=== PATIENT | female | born 1960 | race Caucasian/White ===

== ENCOUNTER 2021-11-23 19:17 | Emergency (ER) | payer OTHER, MEDICAID ==
[~2021-11-23] VITALS: Ht 154.9 cm; Wt 74.8 kg
[2021-11-23 19:49] VITALS: BP_SYST 152
[2021-11-23] MEDS ORDERED: methocarbamoL 500 MG TABLET PO ONE (20:30)
[2021-11-23] MEDS ORDERED: HYDROcodone/ACETAMIN 7.5-325 MG TAB PO ONE (20:30)
[2021-11-23] MEDS ORDERED: MORPHINE SULFATE 15 MG TABLET.ER PO SCH (21:45)
[2021-11-23] MEDS ORDERED: HYDR-3927 PO (22:18)
[2021-11-23] MEDS ORDERED: MORPHINE 2 MG/ML INJ. SYRINGE IM ONE (22:30)
[2021-11-23 23:25] VITALS: BP_SYST 126
== END 2021-11-23 23:00 | disposition home or self-care (01) ==
LOC: SED 19:17
DX: G89.29 Other chronic pain (principal); M25.511 Pain in right shoulder; Z88.8 Allergy status to other drugs, medicaments and biological substances; Z79.899 Other long term (current) drug therapy; W18.39XA Other fall on same level, initial encounter; Y93.89 Activity, other specified; Y92.89 Other specified places as the place of occurrence of the external cause; Y99.8 Other external cause status
CPT/HCPCS: 73030; 96372; 99283; J2270

== ENCOUNTER 2022-02-19 10:08 | Emergency (ER) | payer MEDICARE, MEDICAID ==
[~2022-02-19] VITALS: Ht 154.9 cm; Wt 72.6 kg
[2022-02-19 10:08] VITALS: BP_SYST 131
[~2022-02-19 10:08] MED LIST: HYDR-3927 PO
--- NOTE | 2022-02-19 10:08 | NUR ---
BROUGHT BACK TO BED #5 AND TRIAGED, REPORT GIVEN TO ARIADNE
--- NOTE | 2022-02-19 10:20 | NUR ---
Pt to bed #5 coming from home ambulatory with steady gait. Pt is A&Ox4. Skin intact. Pt c/o having epigastric pain and right neck pain that started a couple weeks ago. Pt rates pain 4/10 non-radiating and comes and goes. No chest pain and no sob. Denies n/v. Pt states she is concerned because her is in the ER as well in the room next to her and wants to be next to him. Stated that pt needs to stay in her room so Dr. Mullins can assess her. Bed in lowest position. VSS.
--- NOTE | 2022-02-19 10:32 | NUR ---
ER at bedside examining patient.
[2022-02-19] MEDS ORDERED: MAG HYDROX/AL HYDROX/SIMETH 30 ML, DICYCLOMINE HCL 20 MG, LIDOCAINE VISCOUS 2% 15ML (PO... PO ONE ×3 (10:45)
--- NOTE | 2022-02-19 10:50 | NUR ---
Urine collected and sent to lab. robotics technologist at bedside.
[2022-02-19 11:02] LABS: BILIRUBIN,URINE NEGATIVE (NEGATIVE); BLOOD, URINE NEGATIVE (NEGATIVE); CLARITY/URINE CLEAR (CLEAR); COLOR,URINE YELLOW (YELLOW); GLUCOSE,URINE NEGATIVE (NEGATIVE); KETONES,URINE TRACE (NEGATIVE); LEUKOCYTE ESTERASE ,URINE 1+ (NEGATIVE); NITRITE, URINE NEGATIVE (NEGATIVE); PROTEIN URINE NEGATIVE (NEGATIVE); UROBILINOGEN,URINE 0.2 (0.2-1.0)
--- NOTE | 2022-02-19 11:09 | NUR ---
EKG performed at BS. Physician given copy of EKG for review.
[2022-02-19 11:30] LABS: BASOPHILS % (AUTO) 0.7 % (0.0-2.0); CALCIUM 8.5 mg/dL (8.4-11.0); CREATININE 0.66 mg/dL (0.55-1.30); EOSINOPHILS % (AUTO) 0.2 % (0.0-4.0); HEMATOCRIT 35.8 % (36-48); HEMOGLOBIN 11.8 g/dL (12.0-16.0); LYMPHOCYTES # (AUTO) 1.3 K/uL (1.0-5.5); LYMPHOCYTES % (AUTO) 21.7 % (20.5-51.5); MEAN CORPUSCULAR HEMOGLOBIN 27 pg (27-31); MEAN CORPUSCULAR HGB CONC 33 % (32-36); MEAN CORPUSCULAR VOLUME 81 fL (79.0-98.0); MONOCYTES # (AUTO) 0.3 K/uL (0.0-1.0); NEUTROPHILS # (AUTO) 4.4 K/uL (1.8-7.7); NEUTROPHILS % (AUTO) 72.4 % (40.0-70.0); PLATELET COUNT (AUTO) 317 K/uL (130-430); POTASSIUM 3.9 mmol/L (3.5-5.1); RED CELL DISTRIBUTION WIDTH 15.5 % (9.0-15.0)
[2022-02-19 11:36] LABS: ALBUMIN 3.5 g/dL (3.4-4.8); TOTAL BILIRUBIN 0.4 mg/dL (0.0-1.0)
[2022-02-19 11:47] LABS: BACTERIA,URINE RARE /HPF (None Seen); RBC,URINE 0-3 /HPF (0-3)
[2022-02-19] MEDS ORDERED: PANT20TA2 PO (13:33)
[2022-02-19 13:38] VITALS: BP_SYST 154
[2022-02-19] MEDS ORDERED: ACETAMINOPHEN 325 MG TABLET ONE (13:43)
[2022-02-19] MEDS ORDERED: ACETAMINOPHEN 325 MG TABLET PO ONE (13:45)
--- NOTE | 2022-02-19 13:47 | NUR ---
Note denia in ED - 02/19/22 at 1349 by [email or web address] Patient given written and verbal discharge instructions and verbalizes understanding. ER discussed with patient the results and treatment provided. Patient in stable condition. ID arm band removed. Rx of Protonix given. Patient educated on pain management and to follow up with PMD. Pain Scale 0/10 . Opportunity for questions provided and answered. Medication side effect fact sheet provided.
--- NOTE | 2022-02-19 13:47 | NUR ---
Patient given written and verbal discharge instructions and verbalizes understanding. ER MD discussed with patient the results and treatment provided. Patient in stable condition. ID arm band removed. Rx of Protonix given. Patient educated on pain management and to follow up with PMD. Pain Scale 2/10. Opportunity for questions provided and answered. Medication side effect fact sheet provided.
== END 2022-02-19 13:38 | disposition home or self-care (01) ==
LOC: SED 10:08
DX: K29.70 Gastritis, unspecified, without bleeding (principal); R10.13 Epigastric pain; Z88.5 Allergy status to narcotic agent; Z88.6 Allergy status to analgesic agent
CPT/HCPCS: 36415; 80053; 81000; 83690; 85025; 87086; 93005; 99284; J2001

== ENCOUNTER 2022-03-13 19:30 | Emergency (ER) | payer MEDICARE, MEDICAID ==
[~2022-03-13] VITALS: Ht 154.9 cm; Wt 73.9 kg
[~2022-03-13 19:30] MED LIST changes: +BACTROBAN NS; -HYDR-3927 PO; +PANT20TA2 PO
[2022-03-13 19:35] VITALS: BP_SYST 157
[2022-03-13 21:13] LABS: BILIRUBIN,URINE NEGATIVE (NEGATIVE); BLOOD, URINE NEGATIVE (NEGATIVE); CLARITY/URINE CLEAR (CLEAR); COLOR,URINE YELLOW (YELLOW); GLUCOSE,URINE NEGATIVE (NEGATIVE); KETONES,URINE NEGATIVE (NEGATIVE); LEUKOCYTE ESTERASE ,URINE TRACE (NEGATIVE); NITRITE, URINE NEGATIVE (NEGATIVE); PROTEIN URINE NEGATIVE (NEGATIVE); UROBILINOGEN,URINE 0.2 (0.2-1.0)
[2022-03-13 21:33] LABS: BACTERIA,URINE FEW /HPF (None Seen); MUCUS,URINE None Seen /LPF (None Seen); RBC,URINE 0-3 /HPF (0-3)
[2022-03-13] MEDS ORDERED: CIPR500T5 PO (21:37)
[2022-03-13] MEDS ORDERED: HYDR-3917 PO (21:37)
[2022-03-13 21:55] VITALS: BP_SYST 150
== END 2022-03-13 21:55 | disposition home or self-care (01) ==
LOC: SED 19:30
DX: S93.402A Sprain of unspecified ligament of left ankle, initial encounter (principal); N39.0 Urinary tract infection, site not specified; Z88.5 Allergy status to narcotic agent; W18.2XXA Fall in (into) shower or empty bathtub, initial encounter; Y93.89 Activity, other specified; Y92.89 Other specified places as the place of occurrence of the external cause; Y99.8 Other external cause status
CPT/HCPCS: 81000; 87086; 99284

== ENCOUNTER → 2022-04-19 | Emergency (ER) | payer MEDICARE, MEDICAID ==
[~2022-04-19] VITALS: Ht 154.9 cm; Wt 73.9 kg
[~2022-04-19] MED LIST changes: +CIPR500T5 PO; +LORA-259 PO; +MECL-225 PO; +MECLIZINE HCL 25 MG TABLET (ANITVERT) PO ONE
[2022-04-19 20:28] VITALS: BP_SYST 153
--- NOTE | 2022-04-19 20:31 | NUR ---
Patient ANO x4 from home ambulatory complaining of dizziness x1 month with head heaviness and's bilateral swollen eyes. Patient denies any chest pain, shortness of breath, fever, nausea, vomiting, diarrhea, or constipation. Pain 4 out of 10. Patient denies taking any medication for symptoms. Patient triaged and placed in waiting room. VSS and patient appears in no acute distress at this time. Accompanied by self, awaiting available bed, and MD notified of need for MSE.
--- NOTE | 2022-04-19 20:31 | NUR ---
Note undone in EDM - 04/19/22 at 2110 by [email or web address] Patient triaged and placed in waiting room. VSS and patient appears in no acute distress at this time. Accompanied by self, awaiting available bed, and MD notified of need for MSE.
--- NOTE | 2022-04-19 21:53 | NUR ---
Urine: clear, yellow, sent to the lab
[2022-04-19 23:59] LABS: BILIRUBIN,URINE NEGATIVE (NEGATIVE); BLOOD, URINE NEGATIVE (NEGATIVE); CLARITY/URINE CLEAR (CLEAR); COLOR,URINE YELLOW (YELLOW); GLUCOSE,URINE NEGATIVE (NEGATIVE); KETONES,URINE NEGATIVE (NEGATIVE); LEUKOCYTE ESTERASE ,URINE 1+ (NEGATIVE); NITRITE, URINE NEGATIVE (NEGATIVE); PROTEIN URINE NEGATIVE (NEGATIVE); UROBILINOGEN,URINE 0.2 (0.2-1.0)
[2022-04-20 00:14] LABS: CALCIUM 7.8 mg/dL (8.4-11.0); CREATININE 0.76 mg/dL (0.55-1.30); HEMOGLOBIN 11.5 g/dL (12.0-16.0); MEAN CORPUSCULAR HEMOGLOBIN 27 pg (27-31); POTASSIUM 3.8 mmol/L (3.5-5.1); WHITE BLOOD COUNT (AUTO) 7.2 K/uL (4.8-10.8)
[2022-04-20 00:20] LABS: ALBUMIN 3.2 g/dL (3.4-4.8); TOTAL BILIRUBIN 0.2 mg/dL (0.0-1.0)
[2022-04-20 00:22] LABS: BASOPHILS # (AUTO) 0.1 K/uL (0.0-0.2); BASOPHILS % (AUTO) 0.9 % (0.0-2.0); EOSINOPHILS # (AUTO) 0.2 K/uL (0.0-0.4); EOSINOPHILS % (AUTO) 2.2 % (0.0-4.0); HEMATOCRIT 34.6 % (36-48); LYMPHOCYTES # (AUTO) 3.7 K/uL (1.0-5.5); LYMPHOCYTES % (AUTO) 51.6 % (20.5-51.5); MEAN CORPUSCULAR HGB CONC 33 % (32-36); MEAN CORPUSCULAR VOLUME 80 fL (79.0-98.0); MONOCYTES # (AUTO) 0.6 K/uL (0.0-1.0); MONOCYTES % (AUTO) 8.7 % (1.7-9.3); NEUTROPHILS # (AUTO) 2.6 K/uL (1.8-7.7); NEUTROPHILS % (AUTO) 36.6 % (40.0-70.0); PLATELET COUNT (AUTO) 293 K/uL (130-430); RED BLOOD CELL COUNT(AUTO) 4.35 MIL/uL (4.2-6.2); RED CELL DISTRIBUTION WIDTH 16.1 % (9.0-15.0)
--- NOTE | 2022-04-20 00:26 | NUR ---
Patient to ER bed 04 to gown for evaluation. Side rails up. SBAR Report given to NAPOLEON Brewster
[2022-04-20 01:04] LABS: RBC,URINE 0-3 /HPF (0-3); WBC,URINE 0-3 /HPF (0-3)
[2022-04-20 01:05] LABS: BACTERIA,URINE None Seen /HPF (None Seen); MUCUS,URINE None Seen /LPF (None Seen)
--- NOTE | 2022-04-20 02:49 | NUR ---
Patient given written and verbal discharge instructions and verbalizes understanding. ER MD Barker discussed with patient the results and treatment provided. Patient in stable condition. ID arm band removed. Rx of Meclizine sent to preferred pharmacy. Patient educated on pain management and to follow up with PMD. Pain Scale 2/10. Opportunity for questions provided and answered. Medication side effect fact sheet provided.
[2022-04-20 02:54] VITALS: BP_SYST 147
== END | disposition home or self-care (01) ==
LOC: SED 20:12
DX: R42 Dizziness and giddiness (principal); R11.0 Nausea; Z88.5 Allergy status to narcotic agent; Z88.6 Allergy status to analgesic agent; Z79.899 Other long term (current) drug therapy
CPT/HCPCS: 36415; 70450-TC; 76376; 80053; 81000; 85025; 99284; J8597

== ENCOUNTER 2022-04-25 15:52 | Emergency (ER) | payer MEDICARE, MEDICAID ==
[~2022-04-25 15:52] MED LIST changes: -LORA-259 PO; -MECLIZINE HCL 25 MG TABLET (ANITVERT) PO ONE
[2022-04-25 16:00] VITALS: BP_SYST 105
--- NOTE | 2022-04-25 16:49 | NUR ---
Patient triaged and placed in waiting room. VSS and patient appears in no acute distress at this time. Accompanied by SELF, awaiting available bed, and MD notified of need for MSE.
[2022-04-25] MEDS ORDERED: ALPRAZolam 0.25 MG TABLET PO ONE (17:45)
[2022-04-25 18:11] LABS: BASOPHILS # (AUTO) 0.1 K/uL (0.0-0.2); EOSINOPHILS % (AUTO) 0.4 % (0.0-4.0); HEMATOCRIT 35.6 % (36-48); HEMOGLOBIN 11.8 g/dL (12.0-16.0); LYMPHOCYTES # (AUTO) 2.3 K/uL (1.0-5.5); LYMPHOCYTES % (AUTO) 30.5 % (20.5-51.5); MEAN CORPUSCULAR HEMOGLOBIN 26 pg (27-31); MEAN CORPUSCULAR HGB CONC 33 % (32-36); MEAN CORPUSCULAR VOLUME 79 fL (79.0-98.0); MONOCYTES # (AUTO) 0.6 K/uL (0.0-1.0); MONOCYTES % (AUTO) 7.9 % (1.7-9.3); NEUTROPHILS # (AUTO) 4.6 K/uL (1.8-7.7); NEUTROPHILS % (AUTO) 60.2 % (40.0-70.0); PLATELET COUNT (AUTO) 369 K/uL (130-430); RED BLOOD CELL COUNT(AUTO) 4.49 MIL/uL (4.2-6.2); RED CELL DISTRIBUTION WIDTH 16.9 % (9.0-15.0); WHITE BLOOD COUNT (AUTO) 7.6 K/uL (4.8-10.8)
[2022-04-25 18:28] LABS: ACETONE, SERUM NEGATIVE (NEGATIVE)
[2022-04-25 18:41] LABS: ANION GAP 7 (5-15); CALCIUM 8.8 mg/dL (8.4-11.0); CHLORIDE 98 mmol/L (98-107); GLUCOSE 85 mg/dL (70-99); POTASSIUM 4.4 mmol/L (3.5-5.1); SODIUM SERUM 132 mmol/L (136-145); UREA NITROGEN, BLOOD 13 mg/dL (8-21)
[2022-04-25 18:47] LABS: ALANINE AMINOTRANSFERASE 12 U/L (12-78); ALBUMIN 3.6 g/dL (3.4-4.8); ASPARTATE AMINOTRANSFERASE 13 U/L (10-37); TOTAL BILIRUBIN 0.4 mg/dL (0.0-1.0)
[2022-04-25] MEDS ORDERED: LORA-259 PO (21:25)
--- NOTE | 2022-04-25 22:15 | NUR ---
Patient given written and verbal discharge instructions and verbalizes understanding. ER MD discussed with patient the results and treatment provided. Patient in stable condition. ID arm band removed. IV catheter removed intact and dressing applied, no active bleeding. Rx of ATIVAN given. Patient educated on pain management and to follow up with PMD. Pain Scale . Opportunity for questions provided and answered. Medication side effect fact sheet provided.
== END 2022-04-25 22:15 | disposition home or self-care (01) ==
LOC: SED 15:52
DX: F41.9 Anxiety disorder, unspecified (principal); R53.1 Weakness; Z88.5 Allergy status to narcotic agent; Z88.6 Allergy status to analgesic agent; Z79.899 Other long term (current) drug therapy
CPT/HCPCS: 36415; 71045; 80053; 82009; 82550; 83605; 85025; 93005; 99285

== ENCOUNTER 2022-06-07 22:18 | Emergency (ER) | payer MEDICARE, MEDICAID ==
[~2022-06-07] VITALS: Ht 152.4 cm; Wt 74.4 kg
[~2022-06-07 22:18] MED LIST changes: +LORA-259 PO
[2022-06-07 22:29] VITALS: BP_SYST 113
--- NOTE | 2022-06-07 22:35 | NUR ---
RECEIVED PT C/O RT SHOULDER PAIN S/P FALL SINAN BRICE ON BED WHEN SHE IS TRYING TO TURN TO HER RT SIDE. PT SSTATED THAT SHE LANDED ON HER RT SHOULDER AND SHE HEARD CRACKED, PT DENIES KO, SHE STATED THAT SHE RUN OUT OF HER NORCO AT HOME. PMH:RT SHOULDER INJURY, HTN, ARTHRITIS PT AAOX4, NO SOB NOTED AND NOT IN ANY DISTRESS AT THIS TIME, PT ASSISTED TO ROOM, AMBULATED WITH STEADY GAIT.
[2022-06-07] MEDS ORDERED: HYDROcodone/ACETAMIN 10-325 MG TAB PO ONE (23:15)
[2022-06-08] MEDS ORDERED: HYDR-3917 PO (00:24)
[2022-06-08 00:38] VITALS: BP_SYST 105
--- NOTE | 2022-06-08 00:41 | NUR ---
DC by DR Pearl. Explained after care instructions to pt. Verbalized understanding. Pt aaox4. Dc in stable condition and no noted distress.
== END 2022-06-08 00:38 | disposition home or self-care (01) ==
LOC: SED 22:18
DX: S43.401A Unspecified sprain of right shoulder joint, initial encounter (principal); M25.511 Pain in right shoulder; Z88.5 Allergy status to narcotic agent; Z88.6 Allergy status to analgesic agent; Z87.898 Personal history of other specified conditions; Z79.899 Other long term (current) drug therapy; W06.XXXA Fall from bed, initial encounter; Y93.89 Activity, other specified; Y92.89 Other specified places as the place of occurrence of the external cause; Y99.8 Other external cause status
CPT/HCPCS: 73030; 93005; 99283

== ENCOUNTER 2022-08-27 22:16 | Emergency (ER) | payer MEDICARE, MEDICAID ==
[~2022-08-27] VITALS: Ht 154.9 cm; Wt 72.6 kg
[2022-08-27 23:51] VITALS: BP_SYST 154
[2022-08-28] MEDS ORDERED: MORPHINE SULFATE 10 MG/ML VIAL IM ONE (01:15)
[2022-08-28] MEDS ORDERED: DIAZEPAM 5 MG TABLET (VALIUM) PO ONE (01:15)
[2022-08-28 04:37] VITALS: BP_SYST 150
== END 2022-08-28 04:37 | disposition home or self-care (01) ==
LOC: SED 22:16
DX: M54.41 Lumbago with sciatica, right side (principal); Z88.5 Allergy status to narcotic agent; Z88.6 Allergy status to analgesic agent; Z87.898 Personal history of other specified conditions; Z79.899 Other long term (current) drug therapy
CPT/HCPCS: 99284; 72131; 76376; 96372; J2270

== ENCOUNTER 2023-03-25 18:27 | Emergency (ER) | payer MEDICAID, MEDICARE, OTHER ==
[~2023-03-25] VITALS: Ht 154.9 cm; Wt 74.8 kg
[2023-03-25 19:02] VITALS: BP_SYST 136
[2023-03-25] MEDS ORDERED: CYCLOBENZAPRINE HCL 10 MG TABLET (FLEXERIL) PO ONE (20:15)
[2023-03-25] MEDS ORDERED: LIDOCAINE PATCH 5% 1 EA TP ONE (20:15)
[2023-03-25] MEDS ORDERED: OXYCODONE/ACETAMINOPHEN 5-325 TABLET PO ONE (20:15)
[2023-03-25] MEDS ORDERED: CYCL10TA24 PO (21:47)
[2023-03-25] MEDS ORDERED: LIDO-6 TP (21:47)
[2023-03-25 22:26] VITALS: BP_SYST 132
== END 2023-03-25 22:26 | disposition home or self-care (01) ==
LOC: SED 18:27
DX: S43.421A Sprain of right rotator cuff capsule, initial encounter (principal); M54.2 Cervicalgia; R51.9 Headache, unspecified; Z88.5 Allergy status to narcotic agent; Z88.6 Allergy status to analgesic agent; Z79.899 Other long term (current) drug therapy; W06.XXXA Fall from bed, initial encounter; Y93.89 Activity, other specified; Y92.89 Other specified places as the place of occurrence of the external cause; Y99.8 Other external cause status
CPT/HCPCS: 73030; 99284

== ENCOUNTER 2023-05-04 12:10 | Inpatient (IN) | payer MEDICARE, MEDICAID ==
[~2023-05-04] VITALS: Ht 154.9 cm; Wt 77.1 kg
[~2023-05-04 12:10] MED LIST changes: +CYCL10TA24 PO; +LIDO-6 TP
[2023-05-04 12:22] VITALS: BP_SYST 143; PULSE 87; RESP 16; TEMP 97.8; O2SAT 97
[2023-05-04] MEDS ORDERED: ONDANSETRON HCL 4 MG/2 ML VIAL ONE (12:40)
[2023-05-04] MEDS ORDERED: fentaNYL CITRATE/PF 100 MCG/2 ML AMP ONE (12:41)
[2023-05-04] MEDS ORDERED: fentaNYL CITRATE/PF 100 MCG/2 ML AMP IVP ONE (12:45)
[2023-05-04] MEDS ORDERED: ONDANSETRON HCL 4 MG/2 ML VIAL IVP ONE (12:45)
[2023-05-04 12:55] LABS: BASOPHILS # (AUTO) 0.1 K/uL (0.0-0.2); BASOPHILS % (AUTO) 0.8 % (0.0-2.0); EOSINOPHILS % (AUTO) 0.3 % (0.0-4.0); HEMATOCRIT 41.3 % (36-48); HEMOGLOBIN 13.2 g/dL (12.0-16.0); MEAN CORPUSCULAR HEMOGLOBIN 26 pg (27-31); MEAN CORPUSCULAR HGB CONC 32 % (32-36); MEAN CORPUSCULAR VOLUME 82 fL (79.0-98.0); MONOCYTES # (AUTO) 0.5 K/uL (0.0-1.0); MONOCYTES % (AUTO) 5.3 % (1.7-9.3); NEUTROPHILS # (AUTO) 6.9 K/uL (1.8-7.7); NEUTROPHILS % (AUTO) 72.6 % (40.0-70.0); PLATELET COUNT (AUTO) 299 K/uL (130-430); RED BLOOD CELL COUNT(AUTO) 5.04 MIL/uL (4.2-6.2); RED CELL DISTRIBUTION WIDTH 17.5 % (9.0-15.0); WHITE BLOOD COUNT (AUTO) 9.5 K/uL (4.8-10.8)
[2023-05-04 13:15] LABS: ALANINE AMINOTRANSFERASE 16 U/L (12-78); ALBUMIN 3.9 g/dL (3.4-4.8); ANION GAP 9 (5-15); ASPARTATE AMINOTRANSFERASE 21 U/L (10-37); CALCIUM 9.1 mg/dL (8.4-11.0); CARBON DIOXIDE 27 mmol/L (23-29); CHLORIDE 100 mmol/L (98-107); GFR AFRICAN AMERICAN 109 mL/min (>90); GFR NON AFRICAN-AMERICAN 90 mL/min (>90); GLUCOSE 114 mg/dL (74-106); LIPASE 45 U/L (73-393); POTASSIUM 3.6 mmol/L (3.5-5.1); SODIUM SERUM 136 mmol/L (136-145); TOTAL BILIRUBIN 0.6 mg/dL (0.0-1.0); TOTAL PROTEIN, SERUM 7.5 g/dL (6.4-8.3); UREA NITROGEN, BLOOD 11 mg/dL (8-21)
[2023-05-04] MEDS ORDERED: PROCHLORPERAZINE EDISYLATE 10 MG/2 ML VIAL IVP ONE (13:45)
[2023-05-04] MEDS ORDERED: NACL 0.9% 1,000 ML IV ONE (14:45)
[2023-05-04] MEDS ORDERED: MORPHINE 4 MG INJ. 4 MG/ML VIAL IVP ONE (14:45)
[2023-05-04 15:11] LABS: BILIRUBIN,URINE NEGATIVE (NEGATIVE); BLOOD, URINE NEGATIVE (NEGATIVE); CLARITY/URINE CLEAR (CLEAR); COLOR,URINE YELLOW (YELLOW); GLUCOSE,URINE NEGATIVE (NEGATIVE); KETONES,URINE NEGATIVE (NEGATIVE); LEUKOCYTE ESTERASE ,URINE 1+ (NEGATIVE); NITRITE, URINE NEGATIVE (NEGATIVE); PH,URINE 8.5 (5.0-8.0); PROTEIN URINE TRACE (NEGATIVE)
[2023-05-04 16:42] LABS: BACTERIA,URINE FEW /HPF (None Seen); RBC,URINE 0-3 /HPF (0-3)
[2023-05-04] MEDS ORDERED: ZOLP10TA2 PO (16:49)
[2023-05-04] MEDS ORDERED: LORA-258 PO (16:49)
[2023-05-04] MEDS ORDERED: HYDR-3927 PO (16:49)
[2023-05-04] MEDS ORDERED: LISI10TA29 PO (16:49)
[2023-05-04] MEDS: LORazepam 2 MG/ML VIAL IVP PRN (20:24)
[2023-05-04] MEDS: D5NS 500 ML IV SCH (21:30)
[2023-05-04] MEDS: MORPHINE 2 MG/ML INJ. SYRINGE IVP PRN (23:27)
[2023-05-05] VITALS (8 sets, daily range): BP systolic 120–132; PULSE 67–74; RESP 18; TEMP 96.7–98.5; O2SAT 96–98
[2023-05-05] MEDS: D5NS 500 ML IV SCH ×3 (02:30→07:30)
[2023-05-05] MEDS: MORPHINE 2 MG/ML INJ. SYRINGE IVP PRN ×2 (03:24→09:38)
[2023-05-05] MEDS: LORazepam 2 MG/ML VIAL IVP PRN ×2 (03:25→09:37)
[2023-05-05] MEDS ORDERED: GASTROGRAFIN 120 ML ONE (09:12)
[2023-05-05] MEDS ORDERED: MORPHINE 4 MG INJ. 4 MG/ML VIAL IVP PRN (10:00)
[2023-05-05] MEDS ORDERED: ONDANSETRON HCL 4 MG/2 ML VIAL IVP PRN (10:00)
[2023-05-05] MEDS ORDERED: NALOXONE HCL 0.4 MG/ML AMP (NARCAN) IVP PRN (10:00)
[2023-05-05] MEDS ORDERED: MORPHINE 2 MG/ML INJ. SYRINGE IVP PRN (10:00)
[2023-05-05] MEDS ORDERED: LORazepam 2 MG/ML VIAL IVP PRN (10:00)
[2023-05-05] MEDS ORDERED: CIPROFLOXACIN LACT 200 MG/D5W 100 ML IV SCH (21:00)
== END 2023-05-05 21:35 | disposition home or self-care (01) | DRG 390 ==
LOC: SED 12:10 → SMU 16:19
PROVIDERS: ADMIT Preventive Medicine Preventive Medicine/Occupational Environmental Medicine; ATTEND Preventive Medicine Preventive Medicine/Occupational Environmental Medicine
DX: K56.609 Unspecified intestinal obstruction, unspecified as to partial versus complete obstruction (principal); G89.4 Chronic pain syndrome; K21.9 Gastro-esophageal reflux disease without esophagitis; M19.90 Unspecified osteoarthritis, unspecified site; Z88.0 Allergy status to penicillin; Z88.8 Allergy status to other drugs, medicaments and biological substances; Z90.49 Acquired absence of other specified parts of digestive tract; Z98.84 Bariatric surgery status
CPT/HCPCS: 36415; 71045; 74018; 74250-TC; 76376; 80053; 81000; 83690; 83880; 84484; 85025; 87086; 93005; 96361; 96374; 96375; 99285; J0744; J0780; J2060; J2270; J2405; J3010; Q9963

== ENCOUNTER 2023-08-19 18:58 | Emergency (ER) | payer OTHER, MEDICAID ==
[~2023-08-19] VITALS: Ht 160 cm; Wt 61.2 kg
[~2023-08-19 18:58] MED LIST changes: -BACTROBAN NS; -CIPR500T5 PO; -CYCL10TA24 PO; +HYDR-3927 PO; -LIDO-6 TP; +LISI10TA29 PO; +LORA-258 PO; -LORA-259 PO; -MECL-225 PO; -PANT20TA2 PO; +ZOLP10TA2 PO
[2023-08-19 19:30] VITALS: BP_SYST 133; PULSE 72; RESP 16; TEMP 97.9; O2SAT 72
[2023-08-19] MEDS ORDERED: KETOROLAC TROMETHAMINE 60 MG/2 ML VIAL IM ONE (20:30)
[2023-08-19 21:15] LABS: CALCIUM 9.2 mg/dL (8.4-11.0); CREATININE 0.67 mg/dL (0.55-1.30); POTASSIUM 4.1 mmol/L (3.5-5.1)
[2023-08-19 21:19] LABS: BASOPHILS % (AUTO) 0.5 % (0.0-2.0); EOSINOPHILS % (AUTO) 0.5 % (0.0-4.0); HEMATOCRIT 39.7 % (36-48); HEMOGLOBIN 12.9 g/dL (12.0-16.0); MEAN CORPUSCULAR HEMOGLOBIN 28 pg (27-31); MEAN CORPUSCULAR HGB CONC 33 % (32-36); MEAN CORPUSCULAR VOLUME 85 fL (79.0-98.0); MONOCYTES # (AUTO) 0.6 K/uL (0.0-1.0); MONOCYTES % (AUTO) 7.6 % (1.7-9.3); NEUTROPHILS # (AUTO) 4.6 K/uL (1.8-7.7); NEUTROPHILS % (AUTO) 55.4 % (40.0-70.0); PLATELET COUNT (AUTO) 387 K/uL (130-430); RED BLOOD CELL COUNT(AUTO) 4.66 MIL/uL (4.2-6.2); RED CELL DISTRIBUTION WIDTH 15.6 % (9.0-15.0); WHITE BLOOD COUNT (AUTO) 8.3 K/uL (4.8-10.8)
[2023-08-19 21:29] LABS: ERYTHROCYTE SEDIMENTATION RATE 15 MM/HR (0-20)
[2023-08-19 21:30] LABS: TOTAL BILIRUBIN 0.4 mg/dL (0.0-1.0); TOTAL PROTEIN, SERUM 7.7 g/dL (6.4-8.3)
[2023-08-19 22:35] VITALS: BP_SYST 133; PULSE 72; RESP 16; TEMP 97.9; O2SAT 72
== END 2023-08-19 22:35 | disposition home or self-care (01) ==
LOC: SED 18:58
DX: R51.9 Headache, unspecified (principal); R11.10 Vomiting, unspecified; Z88.0 Allergy status to penicillin; Z88.5 Allergy status to narcotic agent; Z88.6 Allergy status to analgesic agent; Z79.899 Other long term (current) drug therapy
CPT/HCPCS: 99285; 70450; 80053; 85025; 85651; 36415; 76376; 96372; 82397; J1885

== ENCOUNTER 2023-09-11 18:35 | Emergency (ER) | payer OTHER, MEDICAID ==
[~2023-09-11] VITALS: Ht 160 cm; Wt 68.0 kg
[2023-09-11 18:42] VITALS: BP_SYST 115; PULSE 63; RESP 16; TEMP 97.5; O2SAT 99
[2023-09-11 19:35] LABS: BASOPHILS % (AUTO) 0.6 % (0.0-2.0); EOSINOPHILS # (AUTO) 0.1 K/uL (0.0-0.4); EOSINOPHILS % (AUTO) 1.3 % (0.0-4.0); HEMATOCRIT 36.7 % (36-48); HEMOGLOBIN 11.8 g/dL (12.0-16.0); LYMPHOCYTES # (AUTO) 2.4 K/uL (1.0-5.5); LYMPHOCYTES % (AUTO) 43.4 % (20.5-51.5); MEAN CORPUSCULAR HEMOGLOBIN 28 pg (27-31); MEAN CORPUSCULAR HGB CONC 32 % (32-36); MEAN CORPUSCULAR VOLUME 87 fL (79.0-98.0); MONOCYTES # (AUTO) 0.4 K/uL (0.0-1.0); MONOCYTES % (AUTO) 7.6 % (1.7-9.3); NEUTROPHILS # (AUTO) 2.6 K/uL (1.8-7.7); NEUTROPHILS % (AUTO) 47.1 % (40.0-70.0); PLATELET COUNT (AUTO) 345 K/uL (130-430); RED BLOOD CELL COUNT(AUTO) 4.23 MIL/uL (4.2-6.2); RED CELL DISTRIBUTION WIDTH 15.5 % (9.0-15.0); WHITE BLOOD COUNT (AUTO) 5.5 K/uL (4.8-10.8)
[2023-09-11 19:48] LABS: ANION GAP 6 (5-15); CALCIUM 9.2 mg/dL (8.4-11.0); CARBON DIOXIDE 30 mmol/L (23-29); CHLORIDE 102 mmol/L (98-107); CREATININE 0.71 mg/dL (0.55-1.30); GFR AFRICAN AMERICAN 107 mL/min (>90); GLUCOSE 95 mg/dL (74-106); POTASSIUM 4.5 mmol/L (3.5-5.1); SODIUM SERUM 138 mmol/L (136-145); UREA NITROGEN, BLOOD 11 mg/dL (8-21)
[2023-09-11 19:55] LABS: ALANINE AMINOTRANSFERASE 23 U/L (12-78); ALBUMIN 3.4 g/dL (3.4-4.8); ASPARTATE AMINOTRANSFERASE 22 U/L (10-37); BILIRUBIN,DIRECT 0.1 mg/dL (0.0-0.3); TOTAL BILIRUBIN 0.2 mg/dL (0.0-1.0); TOTAL PROTEIN, SERUM 6.7 g/dL (6.4-8.3)
[2023-09-11 19:56] LABS: GFR NON AFRICAN-AMERICAN 89 mL/min (>90)
[2023-09-11 20:57] VITALS: BP_SYST 115; PULSE 63; RESP 16; TEMP 97.5; O2SAT 99
== END 2023-09-11 20:57 | disposition home or self-care (01) ==
LOC: SED 18:35
DX: R07.89 Other chest pain (principal); Z88.5 Allergy status to narcotic agent; Z88.0 Allergy status to penicillin; Z88.8 Allergy status to other drugs, medicaments and biological substances; Z79.899 Other long term (current) drug therapy
CPT/HCPCS: 36415; 71045; 80048; 80076; 83880; 84484; 85025; 93005; 99285

== ENCOUNTER 2023-12-09 15:56 | Emergency (ER) | payer OTHER, MEDICAID ==
[~2023-12-09] VITALS: Ht 154.9 cm; Wt 117.9 kg
[2023-12-09 16:09] VITALS: BP_SYST 101; PULSE 91; RESP 19; TEMP 98.2; O2SAT 99
[2023-12-09 17:55] VITALS: BP_SYST 101; PULSE 91; RESP 19; TEMP 98.2; O2SAT 99
== END 2023-12-09 17:55 | disposition left against medical advice (07) ==
LOC: SED 15:56
DX: M54.9 Dorsalgia, unspecified (principal); Z53.21 Procedure and treatment not carried out due to patient leaving prior to being seen by health care provider; W19.XXXA Unspecified fall, initial encounter; Y93.89 Activity, other specified; Y92.89 Other specified places as the place of occurrence of the external cause; Y99.8 Other external cause status
CPT/HCPCS: 99281

== ENCOUNTER 2024-04-29 19:31 | Emergency (ER) | payer OTHER, MEDICAID ==
[~2024-04-29] VITALS: Ht 154.9 cm; Wt 79.4 kg
[2024-04-29 20:43] VITALS: BP_SYST 154; PULSE 79; RESP 18; TEMP 98; O2SAT 98
[2024-04-29] MEDS: HYDROcodone/ACETAMIN 10-325 MG TAB PO ONE (21:26)
[2024-04-29 23:28] LABS: COVID19 ANTIGEN SOFIA FIA NEGATIVE (NEGATIVE); INFLUENZA TYPE A Negative (NEGATIVE); INFLUENZA TYPE B NEGATIVE (NEGATIVE)
[2024-04-29 23:30] VITALS: BP_SYST 154; PULSE 79; RESP 18; TEMP 98; O2SAT 98
[2024-04-30] MEDS ORDERED: IBUP-1969 PO (13:18)
[2024-04-30] MEDS ORDERED: HYDR-3917 PO (13:18)
== END 2024-04-29 23:30 | disposition home or self-care (01) ==
LOC: SED 19:31
DX: R51.9 Headache, unspecified (principal); Z20.822 Contact with and (suspected) exposure to COVID-19; Z88.0 Allergy status to penicillin; Z88.5 Allergy status to narcotic agent; Z88.8 Allergy status to other drugs, medicaments and biological substances; Z79.899 Other long term (current) drug therapy; Z79.2 Long term (current) use of antibiotics
CPT/HCPCS: 36415; 99283

== ENCOUNTER 2024-04-30 11:14 | Emergency (ER) | payer OTHER, MEDICAID ==
[~2024-04-30] VITALS: Ht 154.9 cm; Wt 79.4 kg
[2024-04-30 11:18] VITALS: BP_SYST 133; PULSE 67; RESP 16; TEMP 97.4; O2SAT 99
[2024-04-30 12:00] LABS: BASOPHILS % (AUTO) 0.6 % (0.0-2.0); EOSINOPHILS % (AUTO) 0.5 % (0.0-4.0); HEMATOCRIT 39.2 % (36-48); HEMOGLOBIN 12.8 g/dL (12.0-16.0); LYMPHOCYTES # (AUTO) 2.1 K/uL (1.0-5.5); LYMPHOCYTES % (AUTO) 26.4 % (20.5-51.5); MEAN CORPUSCULAR HEMOGLOBIN 27 pg (27-31); MEAN CORPUSCULAR HGB CONC 33 % (32-36); MEAN CORPUSCULAR VOLUME 82 fL (79.0-98.0); MONOCYTES # (AUTO) 0.6 K/uL (0.0-1.0); MONOCYTES % (AUTO) 7.6 % (1.7-9.3); NEUTROPHILS # (AUTO) 5.2 K/uL (1.8-7.7); NEUTROPHILS % (AUTO) 64.9 % (40.0-70.0); PLATELET COUNT (AUTO) 375 K/uL (130-430); RED BLOOD CELL COUNT(AUTO) 4.76 MIL/uL (4.2-6.2); RED CELL DISTRIBUTION WIDTH 15.5 % (9.0-15.0)
[2024-04-30 12:08] LABS: ERYTHROCYTE SEDIMENTATION RATE 12 MM/HR (0-20)
[2024-04-30 12:12] LABS: PROTHROMBIN TIME 10.8 SECS (9.5-12.5)
[2024-04-30 12:25] LABS: CALCIUM 8.9 mg/dL (8.4-11.0); CREATININE 0.7 mg/dL (0.55-1.30); POTASSIUM 3.7 mmol/L (3.5-5.1)
[2024-04-30] MEDS: DIPHENHYDRAMINE INJ 50 MG/ML VIAL IVP ONE (12:29)
[2024-04-30] MEDS: METOCLOPRAMIDE HCL 10 MG/2 ML VIAL IVP ONE (12:29)
[2024-04-30 13:18] VITALS: BP_SYST 137; PULSE 82; RESP 18; TEMP 97.9; O2SAT 97
[2024-04-30] MEDS ORDERED: HYDR-3917 PO (13:18)
[2024-04-30] MEDS ORDERED: IBUP-1969 PO (13:18)
== END 2024-04-30 13:28 | disposition home or self-care (01) ==
LOC: SED 11:14
DX: R51.9 Headache, unspecified (principal); K21.9 Gastro-esophageal reflux disease without esophagitis; G89.29 Other chronic pain; Z88.0 Allergy status to penicillin; Z88.5 Allergy status to narcotic agent; Z79.899 Other long term (current) drug therapy; Z79.2 Long term (current) use of antibiotics
CPT/HCPCS: 99285; 96374; 70450; 96375; 80048; 85025; 85610; 85651; 85730; 36415; 82397; J1200; J2765